=== PATIENT | female | born 1955 | race Caucasian/White ===

== ENCOUNTER 2018-06-06 09:24 | Day surgery (SDC) | payer OTHER ==
[2018-06-06] MEDS ORDERED: NS 500 ML IV ONE (09:35)
[2018-06-06] MEDS ORDERED: MIDAZOLAM 2 MG/2 ML VIAL IVP ONE (09:35)
[2018-06-06] MEDS ORDERED: BENZOCAINE UNIT DOSE SPRAY HURRICAINE MM ONE (09:35)
[2018-06-06] MEDS ORDERED: fentaNYL 100 MCG/2 ML INJ IVP ONE (09:35)
--- NOTE | 2018-06-06 11:00 | POSTANESTH ---
Post Anesthetic Evaluation Cardiovascular Status: Normal, Stable Respiratory Status: Normal, Stable Level of Consciousness/Mental Status: Can Participate in Eval, Mildly Sleepy, Arousable Pain Control: Adequate, Prn Tx Ordered Nausea/Vomiting Control: Adequate, Prn Tx Ordered Complications Possibly Related to Anesthesia: None Noted
--- NOTE | 2018-06-06 11:00 | PDANEPAE ---
ANE History of Present Illness h/o MR for LEIGHANN ANE Past Medical History Past Medical History: mitral regurg - Cardiovascular History Hx Hypertension: No Hx Arrhythmias: No Hx Chest Pain: No Hx Coronary Artery / Peripheral Vascular Disease: No Hx CHF / Valvular Disease: Yes Hx Palpitations: No - Pulmonary History Hx COPD: No Hx Asthma/Reactive Airway Disease: No Hx Recent Upper Respiratory Infection: No Hx Oxygen in Use at Home: No Hx Sleep Apnea: No ANE Review of Systems Review of systems is: negative Review of Systems: - Exercise capacity Exercise capacity: >=4 METS ANE Patient History - Allergies Allergies/Adverse Reactions: codeine Allergy (Verified 07/17/16 08:37) - Home Medications Home medications: home medication list seen and reviewed - Anes Hx Anes Hx: no prior problems - Smoking Hx Smoking Status: Never smoked ANE Labs/Vital Signs - Vital Signs Height: 173 cm Weight: 60.8 kg ANE Physical Exam - Airway Neck exam: FROM Mallampati Score: Class 1 Mouth exam: normal dental/mouth exam - Pulmonary Pulmonary: no respiratory distress - Cardiovascular Cardiovascular: regular rate and rhythym - ASA Status ASA Status: III ANE Anesthesia Plan Anesthesia Plan: GA with mask
[2018-06-06] MEDS ORDERED: PROPOFOL 200 MG/20 ML VIAL ONE ×2 (11:02→11:49)
--- NOTE | 2018-06-06 11:20 | PDGENHP ---
History & Physical Chief Complaint: MR History of Present Illness: 62-year-old female with history of moderate to severe mitral regurgitation now presents for re-evaluation prior to possible cardiac surgery. Pertinent Past, Social, Family History: Reviewed Cardiorespiratory Assessment: Stable for sedation. Sedation was provided by the anesthesia service.
--- NOTE | 2018-06-06 14:17 | ECHO ---
[email or web address] [address] [address] Main: [phone] Fax: Transesophageal Echocardiography Name: JOHN LOPEZ MR#: [id number] Study Date: 06/06/2018 Study Time: 11:03 AM Date of : 1955 Age: 62 year(s) Height: 173 cm (68.11 in.) Weight: 60 kg (132.28 lb.) BSA: 1.72 m2 Gender: Female Examination: LEIGHANN Indication: Eval Mitral Valve Image Quality: Contrast: Requested by: Elke Alvarenga Heart Rate: Rhythm: BP: 107 mmHg/68 mmHg Procedure Staff Access Manager: Ramon Joy RDCS Reading Physician: Elke Alvarenga MD Requesting Provider: LEIGHANN Exam Details Conclusions: Normal global systolic LV function. Normal RV function. The left atrium is mildly dilated. An agitated saline study was performed and was negative for intracardiac shunting. No thrombus in left appendage. There is mild bileaflet prolapse; malcoaptation of A2-P2. Very eccentric posteriorly directed jet. MR ERO IS .22cm2 with a MR Volume of 14ml and MR Fraction of 6%. Moderate to severe MR. Mild tricuspid regurgitation is present. The pulmonary artery pressure is normal. No pericardial effusion. Measurements: Chambers Valvular Assessment AV/MV Valvular Assessment TV/PV Normal Normal Normal Name Value Range Name Value Range Name Value Range LVOTd 1.9 cm 1.9 cm mm LVOT Vmax: 1.02 m/s (0.7 m/s-1.1 TR Vmax: 2.29 mm/s ( - ) m/s) TR PGmax: 21 mmHg ( - ) MV meanP mmHg ( - ) syst. PAP: 26 mmHg ( - ) MVA (Vmax): 2.1 m/s ( - ) Additional Measurements: Chambers Valvular Assessment AV/MV Valvular Assessment TV/PV Name Value Name Value Name Value Patient: JOHN LOPEZ Study Date: 06/06/2018 Page 1 of 2 11:03 AM LADs Lon.6 cm MV Annulus: 3.1 cm CVP (est.): 5 mmHg LA Area: 20.2 cm2 MV VTI: 29.40 cm LA Volume: 59 ml MR ERO: 0.220 cm2 LA Volume Index: 34.3 ml/m2 MR PISA radius: 7 mm MR Reg. Volume: 14 ml MR Reg. Fraction: 6 % Findings: Left Ventricle: Normal global systolic LV function. Right Ventricle: Normal RV function. Left Atrium: The left atrium is mildly dilated. An agitated saline study was performed and was negative for intracardiac shunting. Left Atrial Appendage: Good color flow doppler in the left atrial appendage. No thrombus in left appendage. Right Atrium: The right atrium is normal in size. Mitral Valve: There is mild bileaflet prolapse; malcoaptation of A2-P2. Very eccentric posteriorly directed jet. MR ERO IS .22cm2 with a MR Volume of 14ml and MR Fraction of 6%. Moderate to severe MR. Aortic Valve: The aortic valve is tri-leaflet and functions normally. There is no significant aortic valve regurgitation. Tricuspid Valve: Mild tricuspid regurgitation is present. The pulmonary artery pressure is normal. Pulmonic Valve: The pulmonic valve is normal in appearance and function. Aorta: The aorta is normal. Pericardium: No pericardial effusion. Exam Comments: l1n (No Signature Object) Patient: JOHN LOPEZ Study Date: 06/06/2018 Page 2 of 2 11:03 AM [id number]
== END 2018-06-06 13:15 | disposition home or self-care (01) ==
LOC: FCATH 09:24
PROVIDERS: ATTEND Internal Medicine Cardiovascular Disease
PROC: B245ZZ4 Ultrasonography of Left Heart, Transesophageal (ICD-10-PCS; principal; 2018-06-06)
DX: I34.0 Nonrheumatic mitral (valve) insufficiency (principal)
CPT/HCPCS: J2704

== ENCOUNTER 2018-06-16 12:45 | Day surgery (SDC) | payer OTHER ==
[2018-06-16] MEDS ORDERED: ASPIRIN EC 325 MG TAB PO ONE ×2 (12:48→13:01)
[2018-06-16] MEDS ORDERED: diphenhydrAMINE 25 MG CAP PO ONE ×2 (12:48→13:00)
[2018-06-16] MEDS ORDERED: DIAZEPAM 5 MG TAB PO ONE (12:48)
[2018-06-16] MEDS ORDERED: FAMOTIDINE 20 MG TAB PO ONE (12:48)
[2018-06-16] MEDS ORDERED: NS 1,000 ML IV ONE (12:48)
[2018-06-16] MEDS ORDERED: FAMOTIDINE 20 MG TAB ONE (13:00)
[2018-06-16] MEDS ORDERED: DIAZEPAM 5 MG TAB ONE (13:01)
[2018-06-16 13:26] LABS: PLATELET COUNT 265 10^3/uL (150-400)
[2018-06-16 13:39] LABS: INR 1.05 (0.83-1.16); PROTIME(PATIENT) 13.9 SEC (12.0-15.0)
--- NOTE | 2018-06-16 14:30 | PDHPUP ---
History & Physical Update H&P update statement: This history and physical update is based on an assessment of the patient which was completed after admission or registration (within 24 hours), but prior to the surgery/procedure. H&P update: H&P reviewed & patient examined, no change in patient's condition since H&P completed
--- NOTE | 2018-06-16 14:30 | PDPROPOC ---
Sedation Plan of Care Sedation Plan of Care: vital signs stable, mental status noted, patient educated of risks, benefits, alternatives, patient can tolerate sedation ASA Classification: ASA 2 Planned drugs: fentanyl, midazolam Mallampati Score: Class 2 Mallampati Reference Image: Patient passed 3-3-2 rule?: Yes
[2018-06-16] MEDS ORDERED: IOPAMIDOL (ISOVUE-370) 150 ML BTL IV ONE (14:36)
[2018-06-16] MEDS ORDERED: MIDAZOLAM 2 MG/2 ML VIAL ONE (14:36)
[2018-06-16] MEDS ORDERED: LIDOCAINE 1% 300 MG/30 ML SDV ONE (14:36)
[2018-06-16] MEDS ORDERED: fentaNYL 100 MCG/2 ML INJ ONE (14:36)
[2018-06-16] MEDS ORDERED: NITROGLYCERIN 0.4 MG BTL SL PRN (15:44)
[2018-06-16] MEDS ORDERED: ONDANSETRON 4 MG/2 ML VIAL IVP PRN (15:44)
[2018-06-16] MEDS ORDERED: ATROPINE SULFATE 1 MG/10 ML SYR IVP PRN (15:44)
--- NOTE | 2018-06-16 18:20 | CPIP ---
DATE OF PROCEDURE: 06/16/2018 PROCEDURE: 1. Coronary angiography. 2. Left ventriculography. 3. Right heart catheterization. INDICATION: 1. Preoperative evaluation prior to mitral valve repair. 2. Pulmonary hypertension. ACCESS: Patient was prepped and draped in sterile fashion. 1% lidocaine was used to anesthetize the right inguinal region. A 6-Tongan introducer sheath was placed selectively into the right common fe moral artery via modified Seldinger technique. A 7-Tongan introducer sheath was placed selectively i nto the right common femoral vein via modified Seldinger technique. CORONARY ANGIOGRAPHY: A 6-Tongan JL4 was advanced to left main coronary artery and images obtained. The left main coronary artery bifurcated into an LAD and circumflex coronary arteries. The left sergey n coronary artery appeared normal. The left anterior descending coronary artery gave rise to 1 promi nent diagonal branch. The left anterior descending coronary artery and its diagonal branch appeared normal. The circumflex coronary artery was a moderate-sized vessel. The circumflex coronary artery was nondominant. Circumflex coronary artery gave rise to 2 OM branches. The circumflex coronary art caleb and its complement of OM branches appeared normal. A 6-Tongan JR4 was advanced to the right coronary artery and images obtained. The right coronary art caleb was dominant. The right coronary artery appeared normal. LEFT VENTRICULOGRAPHY: A 6-Tongan pigtail catheter was advanced in the left ventricle and images obt ained. Left ventricle is normal in size and had normal systolic function. Estimated ejection fracti on was 65%. There was moderate mitral regurgitation present. RIGHT HEART CATHETERIZATION: Right heart catheter was advanced in the right atrium and pressure obta ined. The right atrial pressure was approximately 10 mmHg. The catheter was then advanced in the ri ght ventricle and pressure obtained. The right ventricular pressure was 34/10 mmHg. The catheter wa s then advanced in the pulmonary artery position and pressure obtained. Pulmonary artery pressure wa s 32/11 with a mean pressure of 20 mmHg. The catheter was then advanced in the wedge position and pr essure obtained. The pulmonary capillary wedge pressure was 15 mmHg. The femoral artery saturation was 97.2. Pulmonary artery saturation was 68.4. COMPLICATIONS: None. CONCLUSIONS: 1. Normal coronary arteries. 2. Normal left ventricular size and systolic function. 3. No evidence of pulmonary hypertension with a mean pulmonary artery pressure of 20 mmHg. /[id number]/MODL
--- NOTE | 2018-06-18 22:37 | CPEKG ---
Test Reason : OPEN Blood Pressure : / mmHG Vent. Rate : 060 BPM Atrial Rate : 061 BPM P-R Int : 138 ms QRS Dur : 090 ms QT Int : 414 ms P-R-T Axes : 076 069 054 degrees QTc Int : 414 ms Sinus rhythm RSR' pattern in V1 Confirmed by Shayan Motley ([id number]) on 06/18/2018 10:37:09 PM Referred By: Confirmed By:Shayan Motley
== END 2018-06-16 19:50 | disposition home or self-care (01) ==
LOC: FCATH 12:45
PROVIDERS: ATTEND Internal Medicine Cardiovascular Disease
DX: Z01.810 Encounter for preprocedural cardiovascular examination (principal); I27.20 Pulmonary hypertension, unspecified
CPT/HCPCS: J1644; J2250; J3010; Q9967

== ENCOUNTER 2018-06-23 08:05 | Inpatient (IN) | payer OTHER ==
[~2018-06-23 08:05] MED LIST: AMINOCAPROIC ACID 5 GM/20 ML VIAL IV ONE; CARDIOPLEGIC SOLUTION 1,052.8 ML PF ONE; DOBUTamine 500 MG in D5W 250 ML IV SCH; INSULIN REGULAR HUMAN 100 UNIT in NS 100 ML IV ONE; MANNITOL 25% 12.5 GM/50 ML VIAL IVP ONE; NOREPINEPHRINE BITARTRATE 16 MG in NS 250 ML IV ONE; PHENYLEPHRINE HCL 50 MG in NS 250 ML IV ONE
[2018-06-23] MEDS ORDERED: ceFAZolin 2 GM/DEXTROSE 100 ML IV ONE (08:44)
[2018-06-23] MEDS ORDERED: CITRATE DEXTROSE SOLN 500 ML BAG MISC ONE (08:44)
[2018-06-23] MEDS ORDERED: MUPIROCIN 2% 22 GM OINT NS ONE (08:44)
[2018-06-23] MEDS ORDERED: LR 1,000 ML IV ONE (08:49)
[2018-06-23] MEDS ORDERED: LIDOCAINE 1% 2 ML INJ ID PRN (08:49)
[2018-06-23] MEDS ORDERED: NA BICARBONATE 50 MEQ/50 ML VIAL ONE (09:43)
[2018-06-23] MEDS ORDERED: CALCIUM CHLORIDE 1 GM/10 ML INJ ONE ×2 (09:43→09:45)
[2018-06-23] MEDS ORDERED: MILRINONE/DEXTROSE/100 ML BAG IV ONE (09:43)
[2018-06-23] MEDS ORDERED: PROTAMINE SULFATE 50 MG/5 ML VIAL IVP ONE (09:43)
[2018-06-23] MEDS ORDERED: niCARdipine/NACL/200 ML BAG IV ONE (09:44)
[2018-06-23] MEDS ORDERED: ceFAZolin 1 GM VIAL ONE (09:44)
[2018-06-23] MEDS ORDERED: ADENOSINE 6 MG/2 ML VIAL ONE (09:44)
[2018-06-23] MEDS ORDERED: AMIODARONE HCL 150 MG/3 ML VIAL ONE ×2 (09:44→09:46)
[2018-06-23] MEDS ORDERED: DOPamine/DEXTROSE 400 MG/250 ML BAG IV ONE (09:44)
[2018-06-23] MEDS ORDERED: HEPARIN 10,000 UNIT/10 ML MDV (1,000 UNIT/ML) ONE ×2 (09:44→09:45)
[2018-06-23] MEDS ORDERED: NITROGLYCERIN/D5W 50 MG/250 ML BOTTLE IV ONE (09:45)
[2018-06-23] MEDS ORDERED: ALBUMIN 5% 250 ML BOTTLE IV ONE ×3 (09:45→21:07)
[2018-06-23] MEDS ORDERED: CITRATE DEXTROSE SOLN 500 ML BAG ONE (09:45)
[2018-06-23] MEDS ORDERED: LIDOCAINE 2% 100 MG/5 ML SYR ONE (09:45)
[2018-06-23] MEDS ORDERED: MAGNESIUM SULFATE 1 GM/2 ML VIAL ONE (09:46)
[2018-06-23] MEDS ORDERED: methylPREDNISolone SOD SUCC 1 GM/8 ML VIAL ONE (09:46)
[2018-06-23] MEDS ORDERED: MIDAZOLAM 2 MG/2 ML VIAL ONE ×3 (11:25→14:50)
--- NOTE | 2018-06-23 11:38 | PDANEPAE ---
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 recently had URI, was treated w/Z-pac in May, - Neurologic History Hx Cerebrovascular Accident: No Hx Seizures: No Hx Dementia: No Neurologic History Comment: minor numbness/tingling to bilateral feet, R>L. sciatic pain down left leg to knee when leg rotatates out - Endocrine History Hx Diabetes: No Hypothyroid: No Hyperthyroid: No Obesity: no - Renal History Hx Renal Disorders: No - Liver History Hx Hepatic Disorders: No - Neurological & Psychiatric Hx Hx Neurological and Psychiatric Disorders: No - Cancer History Hx Cancer: No - Congenital Disorder History Hx Congenital Disorders: No - GI History Hx Gastrointestinal Disorders: No - Other Health History Other Health History: anemia. bruises easily. low back pain - lumbar stenosis - Chronic Pain History Chronic Pain: Yes (low back pain) - Surgical History Prior Surgeries: bilateral hip surgeries x 4. appendectomy ANE Review of Systems Review of Systems: - Exercise capacity Exercise capacity: >=4 METS METS (RN): 6 METS ANE Patient History - Allergies Allergies/Adverse Reactions: albuterol [From ProAir HFA] Allergy (Verified 06/12/18 09:28) "Heart Racing" codeine Allergy (Verified 06/12/18 09:28) Vomiting warfarin [From Coumadin] Allergy (Verified 06/12/18 09:28) "Passing out" NSAIDS (Non-Steroidal Anti-Inflamma Adverse Reaction (Mild, Verified 06/23/18 09 :52) Other-Enter Comments - Home Medications Home medications: home medication list seen and reviewed Home Medications: Acetaminophen [Tylenol 325mg (*)] 325 mg PO DAILY PRN 06/12/18 [Last Taken 2 Weeks Ago ~06/09/18] Ascorbic Acid [Vitamin C 500 mg (*)] 500 mg PO DAILY 06/12/18 [Last Taken ] Calcium Carbonate [Oyster Shell Calcium 500 mg (*)] 500 mg PO DAILY 06/12/18 [ Last Taken 06/18/18] Ferrous Sulfate [Ferrous Sulf 325 MG (*)] 325 mg PO DAILY 06/12/18 [Last Taken 06/22/18] Herbals/Supplements -Info Only 1 ea PO DAILY 06/12/18 [Last Taken 06/18/18] Melatonin [Melatonin 5 mg] 5 mg PO HS 06/12/18 [Last Taken 06/22/18] Vitamin B Complex [Vitamin B Complex (OTC)] 1 each PO DAILY 06/12/18 [Last Taken 06/18/18] - NPO status NPO Since - Liquids (Date): 06/22/18 NPO Since - Liquids (Time): 23:00 NPO Since - Solids (Date): 06/22/18 NPO Since - Solids (Time): 23:00 - Anes Hx Anes Hx: no prior problems - Smoking Hx Smoking Status: Never smoked - Family Anes Hx Family Hx Anesthesia Complications: none ANE Labs/Vital Signs - Vital Signs Blood Pressure: 114/74 Heart Rate: 54 Respiratory Rate: 16 O2 Sat (%): 99 Height: 172.72 cm Weight: 59.874 kg ANE Physical Exam - Airway Mallampati Score: Class 2 Mouth exam: normal dental/mouth exam - Pulmonary Pulmonary: no respiratory distress - Cardiovascular Cardiovascular: regular rate and rhythym - ASA Status ASA Status: III ANE Anesthesia Plan Anesthesia Plan: general endotracheal anesthesia Lines/Monitors: arterial line, central line, LEIGHANN
[2018-06-23] MEDS ORDERED: ROCURONIUM 100 MG/10 ML VIAL ONE (11:40)
[2018-06-23] MEDS ORDERED: SUCCINYLCHOLINE CHLORIDE 200 MG/10 ML SYR IVP ONE (11:40)
[2018-06-23] MEDS ORDERED: PHENYLEPHRINE 10 MG/ML SDV ONE (11:41)
[2018-06-23] MEDS ORDERED: EPINEPHrine 1 MG/ML INJ ONE (11:41)
[2018-06-23] MEDS ORDERED: fentaNYL 250 MCG/5 ML INJ ONE ×2 (11:43)
[2018-06-23] MEDS ORDERED: PROPOFOL 200 MG/20 ML VIAL ONE (11:43)
[2018-06-23] MEDS ORDERED: LIDOCAINE 2% 2 ML INJ ONE ×2 (11:45)
[2018-06-23] MEDS ORDERED: ePHEDrine SULFATE 25 MG/5 ML SYR ONE (11:56)
[2018-06-23] MEDS ORDERED: GLYCOPYRROLATE 0.2 MG/1 ML VIAL ONE (12:39)
[2018-06-23] MEDS ORDERED: LABETALOL HCL 5 MG/ML 20 ML MDV ONE (12:39)
[2018-06-23] MEDS ORDERED: MIDAZOLAM 2 MG/2 ML VIAL IVP ONE (13:01)
--- NOTE | 2018-06-23 14:16 | ASMTCMCOM ---
CM Note CM Note Notes: 62yo female admitted for Atrial Septal Defect, Asthma, Andrew, Hypoxia, MR, TR. Patient had a R heart cath and bilateral carotid study in prep for MVR and TVR. 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 CM to follow. Date Signed: 06/23/2018 02:15 PM Electronically Signed By:Dena Ramirez LCSW
[2018-06-23] MEDS ORDERED: DEXMEDETOMIDINE HCL 400 MCG in NS 100 ML IV ONE (14:30)
[2018-06-23] MEDS ORDERED: SUGAMMADEX SODIUM 200 MG/2 ML VIAL IVP ONE (15:23)
[2018-06-23] MEDS ORDERED: LACTULOSE 20 GM/30 ML UDCUP PO PRN (15:43)
[2018-06-23] MEDS ORDERED: MEPERIDINE 25 MG/0.5 ML AMP IVP PRN (15:43)
[2018-06-23] MEDS ORDERED: MAGNESIUM HYDROXIDE 30 ML UDCUP PO PRN (15:43)
[2018-06-23] MEDS ORDERED: CEPACOL LOZENGE PO PRN (15:43)
[2018-06-23] MEDS ORDERED: fentaNYL 100 MCG/2 ML INJ IVP PRN (15:43)
[2018-06-23] MEDS ORDERED: BISACODYL 10 MG SUPP PR PRN (15:43)
[2018-06-23] MEDS ORDERED: SODIUM CL NASAL 45 ML BTL EACHNARE PRN (15:43)
[2018-06-23] MEDS ORDERED: POLYETHYLENE GLYCOL 3350 17 GM PKT PO PRN (15:43)
[2018-06-23] MEDS ORDERED: PANTOPRAZOLE SODIUM 40 MG VIAL IVP ONE (15:43)
[2018-06-23] MEDS ORDERED: ACETAMINOPHEN 650 MG SUPP PR PRN (15:43)
[2018-06-23] MEDS ORDERED: D50W 25 GM/50 ML SYR IVP PRN (15:43)
[2018-06-23] MEDS ORDERED: NS 1,000 ML IV SCH (15:45)
[2018-06-23] MEDS ORDERED: niCARdipine/NACL 200 ML IV SCH (16:00)
[2018-06-23] MEDS ORDERED: INSULIN REGULAR HUMAN 100 UNIT in NS 100 ML IV SCH (16:00)
[2018-06-23] MEDS ORDERED: NALOXONE HCL 0.4 MG/ML INJ IVP PRN (16:08)
--- NOTE | 2018-06-23 16:09 | POSTANESTH ---
Post Anesthetic Evaluation Cardiovascular Status: Normal, Stable Respiratory Status: Other, See Comment (stable on vent) Level of Consciousness/Mental Status: Can Participate in Eval, Other, See Comment (sedated with precedex but is following commands) Pain Control: Adequate, Prn Tx Ordered Nausea/Vomiting Control: Adequate, Prn Tx Ordered Complications Possibly Related to Anesthesia: None Noted
[2018-06-23] MEDS: ALBUMIN 5% 250 ML IV PRN ×2 (16:30→18:27)
[2018-06-23] MEDS: POTASSIUM Cl (KCl) 50 ML IV PRN ×3 (17:24→22:23)
--- NOTE | 2018-06-23 19:12 | GOP ---
DATE OF OPERATION: 06/23/2018 SURGEON: Chidi Humphrey MD [employer] INSPECTOR: Dion Reardon PA-C PREOPERATIVE DIAGNOSIS: 1. Severe mitral regurgitation. 2. Moderate tricuspid regurgitation. 3. Small patent foramen ovale. POSTOPERATIVE DIAGNOSIS: 1. Severe mitral regurgitation. 2. Moderate tricuspid regurgitation. 3. Small patent foramen ovale. PROCEDURE PERFORMED: 1. Mitral valve repair with closure of a P1/P2 cleft and P2/P3 cleft and annuloplasty using a 28 mm Physio II ring. 2. Tricuspid valve repair with a 28 mm MC3 ring. 3. Closure of patent foramen ovale. 4. Left atrial appendage ligation. FINDINGS: DESCRIPTION OF PROCEDURE: The patient was taken to the operating room and placed on the operating ta ble in the supine position position. After the induction of general anesthesia and single-lumen endo tracheal tube intubation, patient was prepped and draped sterilely. A standard median sternotomy was performed and the patient was fully heparinized. She was cannulated with a Sarns 8.0 soft-flow aort ic cannula as well as 24-Macanese and 28-Macanese SVC and IVC cannulas. Cardiopulmonary bypass was insti tuted. Once cardiopulmonary bypass had been instituted, the cross clamp was applied and the heart wa s arrested with 1 L of [place] solution. The left atrium was opened and the mitral valve was inspec guru. The anterior leaflet was normal with the exception of a small jet abrasion in the A2 segment. On looking at the posterior leaflet, the entire leaflet was well supported. There was a large cleft between P1 and P2 and a smaller cleft between P2 and P3. These were each individually closed with in terrupted Vicryl suture. Once the 2 clefts had been closed, we sized this to a 28 Physio II ring. S utures were placed around the annulus and the ring was then seated without difficulty. The left atri um was then closed and the right atrium was opened. The tricuspid valve was sized to a 28 mm MC3 rin g. Nine sutures were placed around the annulus and the annuloplasty ring was seated without difficul ty. We then inspected the atrial septum, looking for what was a very small PFO on echocardiography. We found in the fossa ovalis there was about a 1 mm opening. This was closed with a single 4-0 Prol rylie suture. Having completed this, the right atrium was then closed and the cross clamp was removed. The left atrial appendage was ligated. Patient was then from cardiopulmonary bypass with out difficulty and the post pump transesophageal echo shows no residual mitral regurgitation and no r esidual tricuspid regurgitation. The left ventricular function was well preserved. The Protamine wa s then administered and the patient was decannulated. All of the cannulation sites were doubly secur ed with Prolene suture, and after hemostasis had been achieved and after atrial and ventricular pacin g wires were placed as well as 2 mediastinal chest drains, the chest was then closed with #6 stainles s steel wires. Subcutaneous tissue and skin were closed with running Vicryl suture. The patient rito erated the procedure well. HISTORY: The patient is a 62-year-old woman with severe mitral regurgitation and dyspnea on exertion . She was recommended to undergo mitral valve repair. Preprocedural epicardiography also shows tric uspid regurgitation and a very small patent foramen ovale. The patient is now taken to the operating room for valve repair. /[id number]/MODL
[2018-06-23] MEDS: ceFAZolin 2 GM/DEXTROSE 100 ML IV SCH (19:25)
[2018-06-23] MEDS: SENNOSIDES/DOCUSATE SODIUM TAB PO SCH (20:54)
[2018-06-23] MEDS: MUPIROCIN 2% 22 GM OINT NS SCH (21:31)
[2018-06-23] MEDS: METOCLOPRAMIDE 10 MG/2 ML VIAL IVP PRN (21:47)
[2018-06-23] MEDS: ONDANSETRON 4 MG/2 ML VIAL IVP PRN (21:48)
[2018-06-23] MEDS ORDERED: ALBUMIN 5% 250 ML IV ONE (22:00)
[2018-06-23] MEDS ORDERED: ALBUMIN 5% 250 ML IV PRN (22:00)
[2018-06-24] MEDS: HYDROCODONE/APAP 5/325 TAB PO PRN ×2 (00:43→05:27)
[2018-06-24] MEDS: ceFAZolin 2 GM/DEXTROSE 100 ML IV SCH ×3 (04:19→20:21)
[2018-06-24 05:35] LABS: PLATELET COUNT 144 10^3/uL (150-400)
[2018-06-24] MEDS: METOCLOPRAMIDE 10 MG/2 ML VIAL IVP PRN (06:01)
[2018-06-24] MEDS: ONDANSETRON 4 MG/2 ML VIAL IVP PRN ×3 (06:01→21:17)
--- NOTE | 2018-06-24 07:04 | PDMN ---
Medical Necessity Medical necessity: MCG: S290 cardiac valve replacement or repair 5 days: OP : MV repair, Tricuspid valve repair, closure of patent foramen ovale, L atrial appendage ligation-- AUTH# [id number] APPROVED FOR CPT 63521, 27508, 55264 DONE INT LOS 5 DAYS
[2018-06-24] MEDS ORDERED: KETOROLAC 30 MG/1 ML SDV IVP PRN (07:53)
--- NOTE | 2018-06-24 07:53 | SOAPPROG ---
BRENDA Progress Note Assessment/Plan: POD #1: MV repair with closure of P1/P2 and P2/P3 clefts and annuloplasty with 28 mm Physio II ring, TV repair with 28 mm MC3 ring, closure of PFO, ligation YURI Severe MR and moderate TR s/p repair - A-paced overnight for optimized HDs, rate currently in 50s with adequate BP - CT with 240 cc/12 hours, AL/FC to be removed - Pt unable to tolerate Coumadin, will AC with ASA 325 mg daily x 8 weeks if pt agrees - Plan for transfer to PCU later today PFO s/p closure - Stable Acute post-op blood loss anemia with chronic anemia - Stable without the need for transfusions - Will restart Fe Subjective: Pt tired. Has some pain and would like to try Toradol. Denies SOB. Objective: Vital Signs Temp Pulse Resp BP Pulse Ox 36.2 C 60 15 115/56 L 100 06/23/18 19:00 06/24/18 07:36 06/24/18 07:36 06/24/18 07:36 06/24/18 07:36 Laboratory Results 06/24/18 05:20 06/24/18 05:20 06/23/18 06/24/18 06/25/18 05:59 05:59 05:59 Intake Total 1705.8 Output Total 1320 Balance 385.8 Physical Exam - Physical Exam General Appearance: WD/WN, alert, no apparent distress EENT: No scleral icterus (R), No scleral icterus (L) Neck: normal inspection Respiratory: No respiratory distress Cardiac/Chest: bradycardia Abdomen: non-tender, soft, No distended Skin: normal color, warm/dry Extremities: No pedal edema Neuro/Psych: no motor/sensory deficits, alert, normal mood/affect, oriented x 3 ICD10 Worksheet Patient Problems: Problems Problem Status Onset Acute blood loss anemia Acute Mitral insufficiency Acute S/P left atrial appendage ligation Acute S/P mitral valve repair Acute S/P tricuspid valve repair Acute Status post atrial septal defect repair Acute Tricuspid insufficiency Acute
--- NOTE | 2018-06-24 07:57 | CPEKG ---
Test Reason : OPEN Blood Pressure : / mmHG Vent. Rate : 034 BPM Atrial Rate : 000 BPM P-R Int : 212 ms QRS Dur : 090 ms QT Int : 480 ms P-R-T Axes : 000 067 073 degrees QTc Int : 361 ms Junctional rhythm Minimal ST depression, diffuse leads Confirmed by Jovany Mcguire ([id number]) on 06/24/2018 7:57:23 AM Referred By: Confirmed By:Jovany Mcguire
[2018-06-24] MEDS: SENNOSIDES/DOCUSATE SODIUM TAB PO SCH ×2 (08:41→20:21)
[2018-06-24] MEDS: PANTOPRAZOLE SODIUM 40 MG TAB PO SCH (08:42)
[2018-06-24] MEDS: MUPIROCIN 2% 22 GM OINT NS SCH ×2 (08:42→20:22)
[2018-06-24] MEDS ORDERED: traMADol 50 MG TAB PO PRN (09:27)
[2018-06-24] MEDS ORDERED: ACETAMINOPHEN 325 MG TAB PO PRN (09:27)
[2018-06-24] MEDS: ONDANSETRON DISINTEGRATING 4 MG TAB PO PRN (11:43)
[2018-06-24] MEDS: ACETAMINOPHEN 325 MG TAB PO PRN (20:20)
[2018-06-25] MEDS: ACETAMINOPHEN 325 MG TAB PO PRN ×5 (03:38→21:34)
[2018-06-25] MEDS: ceFAZolin 2 GM/DEXTROSE 100 ML IV SCH (03:43)
[2018-06-25 04:46] LABS: PLATELET COUNT 125 10^3/uL (150-400)
--- NOTE | 2018-06-25 07:04 | SOAPPROG ---
BRENDA Progress Note Assessment/Plan: POD #2: MV repair with closure of P1/P2 and P2/P3 clefts and annuloplasty with 28 mm Physio II ring, TV repair with 28 mm MC3 ring, closure of PFO, ligation YURI Severe MR and moderate TR s/p repair - SR in 50s with adequate BP - CT x 1 at removal criteria, will remove A-wires and leave V-wires - Pt unable to tolerate Coumadin, will AC with ASA 325 mg daily x 8 weeks if pt agrees - Post-op ECHO ordered for 06/26 PFO s/p closure - Stable Acute post-op blood loss anemia with chronic anemia - Stable without the need for transfusions - Will restart Fe Subjective: Pt reports adequate pain control with Tylenol. Didn't like Toradol. Objective: Vital Signs Temp Pulse Resp BP Pulse Ox 37.1 C 59 L 18 138/73 H 98 06/25/18 04:00 06/25/18 04:00 06/25/18 04:00 06/25/18 04:00 06/25/18 04:00 Laboratory Results 06/25/18 04:30 06/25/18 04:30 06/24/18 06/25/18 06/26/18 05:59 05:59 05:59 Intake Total 1705.8 768.7 Output Total 1320 585 Balance 385.8 183.7 Physical Exam - Physical Exam General Appearance: WD/WN, alert, no apparent distress EENT: No scleral icterus (R), No scleral icterus (L) Neck: normal inspection Respiratory: No respiratory distress Cardiac/Chest: regular rate, rhythm, bradycardia Abdomen: non-tender, soft, No distended Skin: normal color, warm/dry Extremities: pedal edema (as per pre-op) Neuro/Psych: no motor/sensory deficits, alert, normal mood/affect, oriented x 3 ICD10 Worksheet Patient Problems: Problems Problem Status Onset Acute blood loss anemia Acute Mitral insufficiency Acute S/P left atrial appendage ligation Acute S/P mitral valve repair Acute S/P tricuspid valve repair Acute Status post atrial septal defect repair Acute Tricuspid insufficiency Acute
[2018-06-25] MEDS: ASPIRIN 325 MG TAB PO SCH (09:05)
[2018-06-25] MEDS: SENNOSIDES/DOCUSATE SODIUM TAB PO SCH ×2 (09:05→20:13)
[2018-06-25] MEDS: PANTOPRAZOLE SODIUM 40 MG TAB PO SCH (09:05)
[2018-06-25] MEDS: MUPIROCIN 2% 22 GM OINT NS SCH (09:06)
[2018-06-25] MEDS: ONDANSETRON DISINTEGRATING 4 MG TAB PO PRN ×2 (09:30→15:23)
[2018-06-25] MEDS: KETOROLAC 15 MG/1 ML SDV IVP PRN ×2 (09:30→15:27)
--- NOTE | 2018-06-25 14:51 | ASMTCMCOM ---
CM Note CM Note Notes: 06/25/2018 Case Management Note Reviewed chart. PT recommending outpatient rehab. Discussed with Loki MENDENHALL. Anticipating d/c late in the week. Case Management d/c poc: Home with family to follow up as directed and outpatient cardiac rehab. Case Management available if needs change. Date Signed: 06/25/2018 02:50 PM Electronically Signed By:Kinsey Paulino RN
[2018-06-26] MEDS: KETOROLAC 15 MG/1 ML SDV IVP PRN (02:24)
--- NOTE | 2018-06-26 07:02 | SOAPPROG ---
SOMATHEW Progress Note Assessment/Plan: POD #3: MV repair with closure of P1/P2 and P2/P3 clefts and annuloplasty with 28 mm Physio II ring, TV repair with 28 mm MC3 ring, closure of PFO, ligation YURI Severe MR and moderate TR s/p repair - SR in 50s with adequate BP - CTs and wires out - Pt unable to tolerate Coumadin, will AC with ASA 325 mg daily x 8 weeks - Post-op ECHO ordered for today PFO s/p closure - Stable Acute post-op blood loss anemia with chronic anemia - H/H 7.6/23.2 this AM - no signs of active bleeding - Pt states she's slightly lightheaded when ambulating but prefers to hold off on blood transfusions - Repeat H/H in AM - Continue Fe Disposition - Home Saturday without services Subjective: Pt with slight light-headedness. Denies pain/SOB. Objective: Vital Signs Temp Pulse Resp BP Pulse Ox 37.2 C 56 L 20 107/63 96 06/26/18 04:00 06/26/18 04:00 06/26/18 04:00 06/26/18 04:00 06/26/18 04:00 Laboratory Results 06/26/18 05:00 06/25/18 04:30 06/25/18 06/26/18 06/27/18 05:59 05:59 05:59 Intake Total 768.7 1540 Output Total 585 1650 Balance 183.7 -110 Physical Exam - Physical Exam General Appearance: WD/WN, alert, no apparent distress EENT: No scleral icterus (R), No scleral icterus (L) Neck: normal inspection Respiratory: No respiratory distress Cardiac/Chest: regular rate, rhythm Abdomen: non-tender, soft, No distended Skin: normal color, warm/dry Extremities: No pedal edema Neuro/Psych: no motor/sensory deficits, alert, normal mood/affect, oriented x 3 ICD10 Worksheet Patient Problems: Problems Problem Status Onset Acute blood loss anemia Acute Mitral insufficiency Acute S/P left atrial appendage ligation Acute S/P mitral valve repair Acute S/P tricuspid valve repair Acute Status post atrial septal defect repair Acute Tricuspid insufficiency Acute
[2018-06-26] MEDS: ACETAMINOPHEN 325 MG TAB PO PRN ×3 (08:04→20:56)
[2018-06-26] MEDS: ASPIRIN 325 MG TAB PO SCH (08:51)
[2018-06-26] MEDS: SENNOSIDES/DOCUSATE SODIUM TAB PO SCH (08:51)
[2018-06-26] MEDS: PANTOPRAZOLE SODIUM 40 MG TAB PO SCH (08:52)
--- NOTE | 2018-06-26 10:22 | ECHO ---
[email or web address] [address] Main: [phone] Fax: Transthoracic Echocardiogram Name: JOHN LOPEZ MR#: [id number] Study Date: 06/26/2018 Study Time: 07:23 AM Date of : 1955 Age: 62 year(s) Height: 172.7 cm (68 in.) Weight: 60.78 kg (134 lb.) BSA: 1.72 m2 Gender: Female Examination: Echo Indication: s/p MVA/TVA (28mm Physio II ring/28mm MC3 ring) Image Quality: Contrast: Requested by: Dion Reardon BP: 103 mmHg/59 mmHg Heart Rate: Rhythm: Indication: s/p MVA/TVA (28mm Physio II ring/28mm MC3 ring) Procedure Staff Sales Force Developer: Kenya Miranda [facility] Reading Physician: Mahesh Delatorre MD Requesting Provider: Conclusions: Normal size left ventricle. The ejection fraction is estimated to be 65-70 %. No regional wall motion abnormality. A bioprothetic mitral valve is in place. MV mean PG is 5mmHG.. There is a tricuspid valve ring. No prosthesis regurgitation. TV mean PG is 4mmHG.. Measurements: Chambers Valvular Assessment AV/MV Valvular Assessment TV/PV Normal Normal Normal Name Value Range Name Value Range Name Value Range Ao Danna (MM): 2.7 cm (2.2 cm-3.7 AV Vmax: 2.05 m/s (1 m/s-1.7 TV Vmax: 1.91 m/s (0.3 m/s-0.7 cm) m/s) m/s) IVSd (2D): 0.8 cm (0.6 cm-1.1 AV meanP mmHg ( - ) TV Vmean: 0.88 m/s ( - ) cm) MV E Vmax: 1.87 m/s ( - ) TV PGmax: 15 mmHg ( - ) LVDd (2D): 4.0 cm (3.9 cm-5.3 MV A Vmax: 1.07 m/s ( - ) TV PGmean: 4 mmHg ( - ) cm) MV E/A: 1.75 ( - ) TV VTI: 46.60 cm ( - ) LVDs (2D): 2.7 cm (2.1 cm-4 MV meanP mmHg ( - ) cm) LVPWd (2D): 0.7 cm ( - ) LVEF (MOD4): 73 % (>=55 %) EF Range: 65-70 % Continued Measurements: Chambers Valvular Assessment AV/MV Name Value Name Value Patient: JOHN LOPEZ Study Date: 06/26/2018 Page 1 of 2 07:23 AM LADs: 3.1 cm MV DecTime: 257 m/s LADs Lon.3 cm MV E' Septal: 0.05 m/s LA Area: 20.6 cm2 MV E/E' Septal: 37.60 MV E/E' Lateral: 31.00 MV VTI: 49.20 cm Additional Vessels Name Value Ao Ascendin.9 cm Findings: Left Ventricle: Normal size left ventricle. No LV hypertrophy. Normal global systolic LV function. The ejection fraction is estimated to be 65-70 %. No regional wall motion abnormality. Diastolic dysfunction is present. . Right Ventricle: Normal size right ventricle. Left Atrium: The left atrium is mildly dilated. Right Atrium: The right atrium is normal in size. Mitral Valve: A bioprothetic mitral valve is in place. MV mean PG is 5mmHG.. Aortic Valve: The aortic valve is normal in appearance and function. Tricuspid Valve: There is a tricuspid valve ring. No prosthesis regurgitation. TV mean PG is 4mmHG.. Pulmonic Valve: The pulmonic valve is normal in appearance and function. Aorta: The aorta is normal. Pericardium: No pericardial effusion. (No Signature Object) Patient: JOHN LOPEZ Study Date: 06/26/2018 Page 2 of 2 07:23 AM [id number]
[2018-06-26] MEDS ORDERED: MAGNESIUM PO PRN ×2 (11:04→11:30)
[2018-06-26] MEDS ORDERED: [UNRECOGNIZED DRUG - OTHER] PO PRN ×2 (11:04→11:30)
[2018-06-26] MEDS: FERROUS GLUCONATE PO SCH ×2 (14:22→19:21)
[2018-06-26] MEDS ORDERED: SENNOSIDES/DOCUSATE SODIUM TAB PO PRN (21:00)
[2018-06-27] MEDS: KETOROLAC 15 MG/1 ML SDV IVP PRN (01:11)
[2018-06-27] MEDS: ACETAMINOPHEN 325 MG TAB PO PRN (08:05)
[2018-06-27] MEDS: PANTOPRAZOLE SODIUM 40 MG TAB PO SCH (08:05)
[2018-06-27] MEDS: ASPIRIN 325 MG TAB PO SCH (08:05)
[2018-06-27] MEDS: FERROUS GLUCONATE PO SCH (08:06)
--- NOTE | 2018-06-27 08:53 | SOAPPROG ---
SOAP Progress Note Assessment/Plan: POD #4: MV repair with closure of P1/P2 and P2/P3 clefts and annuloplasty with 28 mm Physio II ring, TV repair with 28 mm MC3 ring, closure of PFO, ligation YURI Severe MR and moderate TR s/p repair - SR in 50s with adequate BP - No BB due to bradycardia - CTs and wires out - Pt unable to tolerate Coumadin, will AC with ASA 325 mg daily x 8 weeks - Post-op TTE - WNL PFO s/p closure - Stable Acute post-op blood loss anemia with chronic anemia - Slightly improved H/H 7.9/24 (06/26 7.6/23.2) - Discussed risks vs. benefits of blood transfusions and patient declined - Fe Shortness of breath - desats at night and with activity - plan to send with home oxygen Disposition - Discharge today with home o2 06/27/18 11:53 06/27/18 11:53 Objective: Vital Signs Temp Pulse Resp BP Pulse Ox 37.7 C 55 L 15 108/63 96 06/27/18 07:52 06/27/18 07:52 06/27/18 07:52 06/27/18 07:52 06/27/18 07:52 Laboratory Results 06/27/18 05:30 06/25/18 04:30 06/26/18 06/27/18 06/28/18 05:59 05:59 05:59 Intake Total 1540 850 Output Total 1650 1575 Balance -110 -725 General Appearance: WD/WN, alert, no apparent distress EENT: No scleral icterus (R), No scleral icterus (L) Neck: normal inspection Respiratory: No respiratory distress Cardiac/Chest: bradycardia Abdomen: non-tender, soft, No distended Skin: normal color, warm/dry Extremities: No pedal edema Neuro/Psych: no motor/sensory deficits, alert, normal mood/affect, oriented x 3 ICD10 Worksheet Patient Problems: Problems Problem Status Onset Acute blood loss anemia Acute Mitral insufficiency Acute S/P left atrial appendage ligation Acute S/P mitral valve repair Acute S/P tricuspid valve repair Acute Status post atrial septal defect repair Acute Tricuspid insufficiency Acute
--- NOTE | 2018-06-27 11:13 | PDDCSUM ---
Discharge Summary Discharge Summary: DATE OF ADMISSION: 06/23/18 DATE OF DISCHARGE: 06/27/18 DISPOSITION: Home, independent PRINCIPAL ADMISSION DIAGNOSES: 1. Severe mitral regurgitation, nonrheumatic 2. Moderate tricuspid regurgitation 3. Small patent foramen ovale 4. Anemia of chronic disease PRINCIPAL DISCHARGE DIAGNOSES: 1.As above PROCEDURE PERFORMED: 1. Mitral valve repair with closure of P1/P2 cleft and P2/P3 cleft and annuloplasty using a 28 mm Physio II ring. Tricuspid valve repair with 28 mm MC3 ring. Closure of patent foramen ovale. Left atrial appendage ligation, 06/23, Dr. Cano 2. Transthoracic echocardiogram, 06/26/18, Dr. Mahesh Delatorre HISTORY OF PRESENT ILLNESS: 06/27/18 60 yo female with a hx of leaflet MVP, moderate to severe MR, moderate TR, mild pHTN, small ASD, and class II functional symptoms found by recent surveillance echo to have worsened MR with an ERO 0.3 and regurgitant fraction 24% who was admitted on 06/23/18 for elective OHS. BiV size and function preserved. No LA dilatation or sig change in degree of TR or PHTN. Feeling pretty well with a modified degree of aerobic exercise and 4x strength training. No weight gain, CP , orthopnea, PND, leg edema, palpitation or presyncope. Avid horsewoman, Multiple past rib fractures and ortho injuries with prolonged healing. PERTINENT PAST MEDICAL HISTORY: 1. Shortness of breath 2. Other fatigue 3. Bilateral total hip arthroplasty 4. Pulmonary hypertension MEDICATIONS ON ADMISSION: Ferrous Sulfate 325 mg PO daily Tylenol 325 mg PO daily PRN Ascorbic Acid 500 mg PO daily Melatonin 5 mg PO HS Vitamin B Complex 1 each PO daily Natural Calm Magnesium Floradix ALLERGIES/SENSITIVITIES: NSAIDS (except aspirin), Albuterol, Codeine, Warfarin CONSULTANTS: None ABBREVIATED HOSPITAL COURSE BY ACTIVE PROBLEM LIST: Ms. Vu was admitted 06/23/18 for planned procedure stated above. She was admitted to the ICU post-operatively was extubated later that evening. She required atrial pacing post-operatively to optimize hemodynamics. She was transferred to the PCU on POD #1 and her arterial line, chest tubes, and maya catheter were removed without complication. Her diet was advanced. Prior to the OR, she had a history of chronic anemia at 10.1/29.2. Her Fe was restarted in the hospital. Her hematocrit drifted as low as 23.2. She declined blood transfusions and her hematocrit was 24 on discharge. She was fatigued with some weakness. She also required oxygen supplementation during the night and with activity. Her SpO2 drifted as low as 79%. She was discharged with a home oxygen prescription. Her pain was controlled with as needed Tylenol. Coumadin was withheld given patients allergy and full dose aspirin was substituted instead. CVL right IJ was removed on POD # 4. She was discharged in stable condition. DISCHARGE CLINICAL INFORMATION: Sternum grossly stable. Sternotomy CDI, sutured, +Dermabond. HR 60 . SBP 116/64 . SpO2 79 L with activity . 59.8 kg at admission, 61.9 kg at discharge WBC 9.81 , Hgb 9.7 , HCT 29.3 , Plt 144 , Na 138 , K 4.5 , Cr 0.7 DISCHARGE MEDICATIONS: As on admission with the following adjustments: NEW prescriptions: 1.Aspirin 325 mg PO daily for 8 weeks FOLLOW UP APPOINTMENTS: 1. CV surgery: with Dr Humphrey at [facility] on 07/08/18 @ 11:30 am. 2. Cardiology: with Dr. Alvarenga at [facility] within 4-6 weeks. Appointment to be established during surgical visit. FOLLOW UP TESTING: CXR/CBC prior to surgical appointment.
--- NOTE | 2018-06-27 11:51 | PDHOMEO2F ---
Home Oxygen Face to Face Home Orders: I certify that a physician or a nurse practitioner or physician's catering administrative assistant has had a [id number] encounter with this patient on the date of this order due to the diagnosis listed, which relates to the primary reason the patient requires home oxygen. Alternative treatments have been tried, or considered, and deemed ineffective. It is anticipated that supplemental oxygen will result in improvement with treatment. 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 Length of time home oxygen needed: 1 month
--- NOTE | 2018-06-27 11:57 | ASMTLACE ---
LACE Length of stay for Answers: 4-6 days current admission Acuity / Level of Answers: Yes Care: Did the patient have an inpatient admission? Comorbidities - select Answers: Congestive heart failure all that apply Opioid dependence / Chronic pain # of Emergency department Answers: 0 visits in the last 6 months Score: 13 Date Signed: 06/27/2018 11:41 AM Electronically Signed By:LUCIEN Bautista
--- NOTE | 2018-06-27 12:00 | ASDISCHSUM ---
Discharge Information Plan Status:Home with No Needs Medically Cleared to Leave:06/26/2018 Discharge Date:06/26/2018 CM D/C Disposition:Home, Routine, Self-Care ADT D/C Disposition:Home, Routine, Self-Care Projected Discharge Date:06/26/2018 Transportation at D/C:Family Discharge Delay Reason: Follow-Up Date:06/26/2018 Discharge Slot: Final Diagnosis: Placement Information Patient Contact Information Contact Name:MARIANA Relationship: Address:[address] City:[facility] Phone: State/Zip Code:[place] [address] Email: Financial Information Financial Class:HMO and PPO Plans Primary Plan Desc:JUDITH PPO POS HMO Primary Plan Number:[id number] Secondary Plan Desc: Secondary Plan Number: Assessment Information LACE LACE Length of stay for Answers: 4-6 days current admission Acuity / Level of Answers: Yes Care: Did the patient have an inpatient admission? Comorbidities - select Answers: Congestive heart failure all that apply Opioid dependence / Chronic pain # of Emergency department Answers: 0 visits in the last 6 months Score: 13 Date Signed: 06/27/2018 11:41 AM Electronically Signed By:LUCIEN Bautista [facility] CM Progress Note CM Note CM Note Notes: 62yo female admitted for Atrial Septal Defect, Asthma, Andrew, Hypoxia, MR, TR. Patient had a R heart cath and bilateral carotid study in prep for MVR and TVR. 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 CM to follow. Date Signed: 06/23/2018 02:15 PM Electronically Signed By:Dena Ramirez LCSW [facility] CM Progress Note CM Note CM Note Notes: 06/25/2018 Case Management Note Reviewed chart. PT recommending outpatient rehab. Discussed with Loki MENDENHALL. Anticipating d/c late in the week. Case Management d/c poc: Home with family to follow up as directed and outpatient cardiac rehab. Case Management available if needs change. Date Signed: 06/25/2018 02:50 PM Electronically Signed By:Kinsey Paulino RN Case Management Discharge Plan Note Case Management Discharge Discharge Order Complete? Answers: Yes Patient to Obtain Answers: via Family Medications Transportation Arranged Answers: Family/Friends Discharge Comments Notes: Pt is discharging home today with family and no CM needs. She will follow up with outpt cardiac rehab. Date Signed: 06/27/2018 11:43 AM Electronically Signed By:LUCIEN Bautista Intervention Information
[2018-06-27 14:43] VITALS: BP 116/64
== END 2018-06-27 14:31 | disposition home or self-care (01) | DRG 220 ==
LOC: F3N 08:05 → F2N 11:11 → F2W 06-24 11:43
PROVIDERS: ADMIT Thoracic Surgery (Cardiothoracic Vascular Surgery); ATTEND Thoracic Surgery (Cardiothoracic Vascular Surgery)
DX: I08.1 Rheumatic disorders of both mitral and tricuspid valves (principal); Q21.1 Atrial septal defect; Z96.643 Presence of artificial hip joint, bilateral; D53.9 Nutritional anemia, unspecified
CPT/HCPCS: 82435-PO; 82565-PO; 82947-PO; 84132-PO; 84295-PO; 84520-PO; 85014-PO; 97116-GP; 97161-GP; 97165-GO; 97530-GO; 97535-GO; C1768; J0153; J0171; J0282; J0330; J0690; J1265; J1644; J1815; J1885; J2001; J2150; J2250; J2260; J2270; J2370; J2405; J2704; J2720; J2765; J2930; J3010; J3475; J3480; P9041

== ENCOUNTER → 2018-07-08 | Outpatient (CLI) | payer OTHER | LOC: FIMAGING 10:30 | PROVIDERS: ATTEND Thoracic Surgery (Cardiothoracic Vascular Surgery) | DX: J90 Pleural effusion, not elsewhere classified (principal); R60.9 Edema, unspecified ==